=== PATIENT | male | born 1960 | race Caucasian/White ===

== ENCOUNTER 2016-07-11 18:38 | Emergency (ER) | payer OTHER ==
[~2016-07-11 18:38] MED LIST: ALBU1AER9 PO; BISM262S7 PO; CLC100X PO; MELA3TAB12 PO; OXYC5TAB PO
[2016-07-11 18:42] VITALS: TEMP 36.7
[2016-07-11] MEDS ORDERED: CEFTRIAXONE SOD INJ 1 GM ADDVIAL IV STA (18:57)
--- NOTE | 2016-07-11 19:02 | EMERGENCY ROOM VISIT NOTE ---
History Report prepared by Samm: Jay Patel Under the Supervision of: Dr. Juni Shrestha D.O. First contact with patient: 18:50 Chief Complaint: HAND PAIN/INJURY Stated Complaint: L HAND KEVIN History of Present Illness The patient is a 56 year old male who presents to the Emergency Room with complaints of constant pain in the left hand/wrist that began four days prior to arrival. The patient denies any trauma to the arm or hand, but notes that it has been stiff and sore from the forearm down to the hand. He denies any pain in the chest or under the left armpit. He denies any recent significant fingers. 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 A total of 10 systems reviewed and were otherwise negative. Past Medical & Surgical Medical Problems: (1) Appendicitis, acute Surgical Problems: (1) S/P appendectomy Family History Cancer Social History Smoking Status: Current Every Day Smoker Alcohol Use: none Drug Use: none Marital Status: Housing Status: lives with family Occupation Status: employed Current/Historical Medications Scheduled Cephalexin Monohydrate (Keflex), 500 MG PO QID Sulfa/Trimethoprim (Bactrim Ds 800MG/160MG), 1 TAB PO BID Scheduled PRN Oxycodone Immediate Rel Tab (Roxicodone Ir), 1-2 TAB PO Q4H PRN for Severe Pain Allergies Coded Allergies: No Known Allergies (Unverified , 07/11/16) Physical Exam Vital Signs Date Time Temp Pulse Resp B/P Pulse Ox O2 Delivery O2 Flow Rate FiO2 07/11/16 21:27 78 18 132/70 98 07/11/16 20:54 76 18 122/73 98 Room Air 07/11/16 18:42 36.7 80 20 149/90 96 Room Air Physical Exam GENERAL: Patient is awake, alert, and in no acute distress. Patient is resting comfortably and showing no signs of anxiety EYES: The conjunctivae are clear. The pupils are round and reactive. EARS, NOSE, MOUTH AND THROAT: The nose is without any evidence of any deformity. Mucous membranes are moist tongue is midline NECK: The neck is nontender and supple. RESPIRATORY: Normal respiratory effort is noted there is no evidence of wheezing rhonchi or rales CARDIOVASCULAR: Regular rate and rhythm noted there no murmurs rubs or gallops normal S1 normal S2 GASTROINTESTINAL: The abdomen is soft. Bowel sounds are present in all quadrants. Abdomen is nontender BACK: No midline tenderness or or step-off noted range of motion in flexion extension as well as rotation no signs of muscle spasm noted MUSCULOSKELETAL/EXTREMITIES: There is no evidence of gross deformity full range of motion is noted in the hips and shoulders. There is swelling to the dorsum of the left hand. No erythema or lymphangitic streaking was noted. SKIN: There is no obvious evidence of any rash. There are no petechiae, pallor or cyanosis noted. There is edema present on the dorsum of the left hand. There are multiple curvilinear deep lacerations to the left forearm. No active bleeding noted. NEUROLOGIC: Patient is awake alert and oriented x3 Medical Decision & Procedures ER Provider Diagnostic Interpretation: Radiology results as stated below per my review and radiologist interpretation: TWO VIEW CHEST CLINICAL HISTORY: Left arm swelling. FINDINGS: PA and lateral chest radiographs are compared to chest x-ray and chest CT dated 11/01/2014. The cardiomediastinal silhouette is unremarkable. There is mild elevation of the right hemidiaphragm. The lungs and pleural spaces are clear. There is no pneumothorax. The bony thorax appears intact. IMPRESSION: No active disease in the chest. Electronically signed by: Rich Barnett M.D. 07/11/2016 8:58 PM Dictated Date/Time: 07/11/2016 8:58 PM LEFT FOREARM 2 VIEWS CLINICAL HISTORY: Left arm swelling. FINDINGS: AP and lateral views of the left forearm are obtained. No prior studies are available for comparison at the time of dictation. The skeletal structures are well mineralized. No fracture is seen in the left forearm. The wrist and elbow joints are grossly maintained. Mild soft tissue edema is noted. IMPRESSION: Mild soft tissue swelling with no acute bony abnormality seen in the left forearm. Electronically signed by: Rich Barnett M.D. 07/11/2016 9:01 PM Dictated Date/Time: 07/11/2016 9:00 PM LEFT HAND 3 VIEWS CLINICAL HISTORY: Left arm swelling. FINDINGS: 3 views of left hand are obtained. No prior studies are available for comparison at the time of dictation. The skeletal structures are well mineralized. No fracture is seen. The joint spaces of the hand are well-maintained. Mild soft tissue swelling is noted. IMPRESSION: Soft tissue swelling with no acute bony abnormality seen in the left hand. Electronically signed by: Rich Barnett M.D. 07/11/2016 9:00 PM Dictated Date/Time: 07/11/2016 8:59 PM ULTRASOUND LEFT UPPER EXTREMITY VENOUS CLINICAL HISTORY: Left arm swelling. COMPARISON STUDY: No priors. TECHNIQUE: Real-time, grayscale, and color Doppler sonography of the deep veins of the left upper extremity is performed. Compression and augmentation were utilized. FINDINGS: There is no sonographic evidence of deep venous thrombosis identified in the left upper extremity. The left internal jugular, axillary, and brachial veins are patent and normally compressible. Normal venous waveforms and augmentation are seen within the left subclavian vein. The cephalic and basilic veins are clear. The visualized radial and ulnar veins are patent. IMPRESSION: There is no sonographic evidence of deep venous thrombosis identified in the left upper extremity. Electronically signed by: Rich Barnett M.D. 07/11/2016 8:39 PM Dictated Date/Time: 07/11/2016 8:39 PM Laboratory Results 07/11/16 19:10 Red Blood Count 4.92, Mean Corpuscular Volume 87.6, Mean Corpuscular Hemoglobin 30.3, Mean Corpuscular Hemoglobin Concent 34.6, Mean Platelet Volume 9.2, Neutrophils (%) (Auto) 36.7, Lymphocytes (%) (Auto) 41.5, Monocytes (%) (Auto) 7.5, Eosinophils (%) (Auto) 13.2, Basophils (%) (Auto) 0.9, Neutrophils # (Auto ) 2.39, Lymphocytes # (Auto) 2.70, Monocytes # (Auto) 0.49, Eosinophils # (Auto ) 0.86, Basophils # (Auto) 0.06 07/11/16 19:10 Test 07/11/16 19:10 White Blood Count 6.51 K/uL (4.8-10.8) Red Blood Count 4.92 M/uL (4.7-6.1) Hemoglobin 14.9 g/dL (14.0-18.0) Hematocrit 43.1 % (42-52) Mean Corpuscular Volume 87.6 fL (80-100) Mean Corpuscular Hemoglobin 30.3 pg (25-34) Mean Corpuscular Hemoglobin Concent 34.6 g/dl (32-36) Platelet Count 265 K/uL (130-400) Mean Platelet Volume 9.2 fL (7.4-10.4) Neutrophils (%) (Auto) 36.7 % Lymphocytes (%) (Auto) 41.5 % Monocytes (%) (Auto) 7.5 % Eosinophils (%) (Auto) 13.2 % Basophils (%) (Auto) 0.9 % Neutrophils # (Auto) 2.39 K/uL (1.4-6.5) Lymphocytes # (Auto) 2.70 K/uL (1.2-3.4) Monocytes # (Auto) 0.49 K/uL (0.11-0.59) Eosinophils # (Auto) 0.86 K/uL (0-0.5) Basophils # (Auto) 0.06 K/uL (0-0.2) RDW Standard Deviation 42.4 fL (36.4-46.3) RDW Coefficient of Variation 13.2 % (11.5-14.5) Immature Granulocyte % (Auto) 0.2 % Immature Granulocyte # (Auto) 0.01 K/uL (0.00-0.02) Erythrocyte Sedimentation Rate 3 mm/hr (0-14) Prothrombin Time 10.4 SECONDS (9.0-12.0) Prothromb Time International Ratio 1.0 (0.9-1.1) Activated Partial Thromboplast Time 34.5 SECONDS (21.0-31.0) Partial Thromboplastin Ratio 1.3 Anion Gap 7.0 mmol/L (3-11) Estimated GFR () 78.4 Estimated GFR (Non- 67.7 BUN/Creatinine Ratio 20.3 (10-20) Calcium Level 9.1 mg/dl (8.5-10.1) Total Bilirubin 0.3 mg/dl (0.2-1) Direct Bilirubin < 0.1 mg/dl (0-0.2) Aspartate Amino Transf (AST/SGOT) 29 U/L (15-37) Alanine Aminotransferase (ALT/SGPT) 24 U/L (12-78) Alkaline Phosphatase 106 U/L (45-117) C-Reactive Protein 2.42 mg/dl (0-0.29) Total Protein 7.0 gm/dl (6.4-8.2) Albumin 3.8 gm/dl (3.4-5.0) Laboratory results per my review. Medications Administered Medications (Trade) Dose Ordered Sig/Chava Route Start Time Stop Time Status Last Admin Dose Admin Ceftriaxone Sodium (Rocephin Inj) 1 gm NOW STAT IV 07/11/16 18:57 07/11/16 19:00 DC 07/11/16 19:15 1 GM ED Course 1852: The patient was evaluated in room B3B. A complete history and physical examination were performed. 1856: Ordered Rocephin 1 gm IV. 2111: Upon reevaluation, the patient is resting in bed. I discussed the results and treatment plan with him. He verbalized agreement of the treatment plan. The patient was discharged home. Medical Decision Differential diagnosis: Etiologies such as cellulitis, abscess, MRSA infection, DVT, necrotizing fasciitis, dermatitis, drug eruption, as well as others were entertained.. Nursing notes reviewed. The patient is a 56-year-old male who presented to the emergency department for evaluation of left hand and left forearm pain. The patient states she's had these symptoms for about a week. He also noticed a laceration to his left forearm that he sustained with a chainsaw recently. This area appears to be healing well and does not appear to be full-thickness. The patient did not appear to have any bony abnormality and he has no history of trauma. He was treated with IV antibiotics for presumed cellulitis. I discussed the patient's laboratory and radiographic studies with him. He was encouraged to continue to do wound care to the left forearm. He was also encouraged to continue all medications as prescribed. He was also encouraged to follow-up with his family doctor this week for reevaluation but return to the emergency department immediately if symptoms change worsen or the need arises. Impression Primary Impression: Cellulitis Scribe Attestation The scribe's documentation has been prepared under my direction and personally reviewed by me in its entirety. I confirm that the note above accurately reflects all work, treatment, procedures, and medical decision making performed by me. Departure Information Dispostion Home / Self-Care Prescriptions Oxycodone Immediate Rel Tab (ROXICODONE IR) 5 Mg Tab 1-2 TAB PO Q4H Y for Severe Pain, #24 TAB Prov: Juni Shrestha, DO 07/11/16 Cephalexin Monohydrate (KEFLEX) 500 Mg Cap 500 MG PO QID, #40 CAP Prov: Juni Shrestha, DO 07/11/16 Sulfa/Trimethoprim (Bactrim Ds 800MG/160MG) Tab 1 TAB PO BID, #20 TAB Prov: Juni Shrestha, DO 07/11/16 Referrals Renetta Tobar D.O. (PCP) Forms HOME CARE DOCUMENTATION FORM, IMPORTANT VISIT INFORMATION Patient Instructions My [facility] Additional Instructions Continue all medications as prescribed. Put triple antibiotic ointment to the laceration to the left forearm 2-3 times a day. Follow-up with your family this week for reevaluation. Continue using Motrin and Tylenol for mild pain. Return to the emergency department immediately if symptoms change worsen or the need arises. Problem Qualifiers Primary Impression: Cellulitis Site of cellulitis: extremity Site of cellulitis of extremity: upper extremity Laterality: left Qualified Codes: L03.114 - Cellulitis of left upper limb
[2016-07-11 19:25] LABS: BASO % 0.9 %; BASO ABS # 0.06 K/uL (0-0.2); COMPLETE YES; EOS % 13.2 %; HEMATOCRIT 43.1 % (42-52); IG% 0.2 %; LYMPH % 41.5 %; MEAN CELL VOLUME 87.6 fL (80-100); MEAN CORPUSCULAR HEMOGLOBIN 30.3 pg (25-34); MEAN CORPUSCULAR HGB CONC 34.6 g/dl (32-36); MEAN PLATELET VOLUME 9.2 fL (7.4-10.4); MONO % 7.5 %; NEUT % 36.7 %; PLATELET COUNT 265 K/uL (130-400); RED BLOOD COUNT 4.92 M/uL (4.7-6.1); WHITE BLOOD COUNT 6.51 K/uL (4.8-10.8)
[2016-07-11 19:36] LABS: PARTIAL THROMBOPLASTIN RATIO 1.3; PROTHROMBIN TIME (PATIENT) 10.4 SECONDS (9.0-12.0)
[2016-07-11 19:40] LABS: ALT/SGPT 24 U/L (12-78); AST/SGOT 29 U/L (15-37); BLOOD UREA NITROGEN 24 mg/dl (7-18); BUN/CREATININE RATIO 20.3 (10-20); CALCIUM 9.1 mg/dl (8.5-10.1); CARBON DIOXIDE 26 mmol/L (21-32); CHLORIDE 110 mmol/L (98-107); GLUCOSE 119 mg/dl (70-99); SODIUM 143 mmol/L (136-145)
[2016-07-11 19:43] LABS: ALKALINE PHOSPHATASE 106 U/L (45-117); C-REACTIVE PROTEIN 2.42 mg/dl (0-0.29)
--- NOTE | 2016-07-11 20:41 | DIAGNOSTIC IMAGING REPORT ---
ULTRASOUND LEFT UPPER EXTREMITY VENOUS CLINICAL HISTORY: Left arm swelling. COMPARISON STUDY: No priors. TECHNIQUE: Real-time, grayscale, and color Doppler sonography of the deep veins of the left upper extremity is performed. Compression and augmentation were utilized. FINDINGS: There is no sonographic evidence of deep venous thrombosis identified in the left upper extremity. The left internal jugular, axillary, and brachial veins are patent and normally compressible. Normal venous waveforms and augmentation are seen within the left subclavian vein. The cephalic and basilic veins are clear. The visualized radial and ulnar veins are patent. IMPRESSION: There is no sonographic evidence of deep venous thrombosis identified in the left upper extremity. Electronically signed by: Rich Barnett M.D. 07/11/2016 8:39 PM Dictated Date/Time: 07/11/2016 8:39 PM
--- NOTE | 2016-07-11 21:00 | DIAGNOSTIC IMAGING REPORT ---
TWO VIEW CHEST CLINICAL HISTORY: Left arm swelling. FINDINGS: PA and lateral chest radiographs are compared to chest x-ray and chest CT dated 11/01/2014. The cardiomediastinal silhouette is unremarkable. There is mild elevation of the right hemidiaphragm. The lungs and pleural spaces are clear. There is no pneumothorax. The bony thorax appears intact. IMPRESSION: No active disease in the chest. Electronically signed by: Rich Barnett M.D. 07/11/2016 8:58 PM Dictated Date/Time: 07/11/2016 8:58 PM
--- NOTE | 2016-07-11 21:01 | DIAGNOSTIC IMAGING REPORT ---
LEFT HAND 3 VIEWS CLINICAL HISTORY: Left arm swelling. FINDINGS: 3 views of left hand are obtained. No prior studies are available for comparison at the time of dictation. The skeletal structures are well mineralized. No fracture is seen. The joint spaces of the hand are well-maintained. Mild soft tissue swelling is noted. IMPRESSION: Soft tissue swelling with no acute bony abnormality seen in the left hand. Electronically signed by: Rich Barnett M.D. 07/11/2016 9:00 PM Dictated Date/Time: 07/11/2016 8:59 PM
--- NOTE | 2016-07-11 21:02 | DIAGNOSTIC IMAGING REPORT ---
LEFT FOREARM 2 VIEWS CLINICAL HISTORY: Left arm swelling. FINDINGS: AP and lateral views of the left forearm are obtained. No prior studies are available for comparison at the time of dictation. The skeletal structures are well mineralized. No fracture is seen in the left forearm. The wrist and elbow joints are grossly maintained. Mild soft tissue edema is noted. IMPRESSION: Mild soft tissue swelling with no acute bony abnormality seen in the left forearm. Electronically signed by: Rich Barnett M.D. 07/11/2016 9:01 PM Dictated Date/Time: 07/11/2016 9:00 PM
[2016-07-11] MEDS ORDERED: CEPH500C2 PO (21:11)
[2016-07-11] MEDS ORDERED: SULF800T23 PO (21:11)
[2016-07-11] MEDS ORDERED: OXYC1TAB3 PO (21:11)
[2016-07-11 21:27] VITALS: BP 132/70; PULSE 78; O2SAT 98
[2016-09-18] MEDS ORDERED: MULT-506 PO (13:38)
== END 2016-07-11 21:28 | disposition home or self-care (01) ==
LOC: C.EDB 18:41
DX: L03.114 Cellulitis of left upper limb (principal); Z80.9 Family history of malignant neoplasm, unspecified; F17.210 Nicotine dependence, cigarettes, uncomplicated

== ENCOUNTER 2016-09-17 12:49 | Emergency (ER) | payer OTHER ==
[~2016-09-17] VITALS: Ht 175.3 cm; Wt 89.3 kg
[~2016-09-17 12:49] MED LIST changes: -ALBU1AER9 PO; -BISM262S7 PO; +CEPH500C2 PO; -CLC100X PO; -MELA3TAB12 PO; +OXYC1TAB3 PO; -OXYC5TAB PO; +SULF800T23 PO
[2016-09-17 13:01] VITALS: TEMP 37.4; Ht 175.3 cm; Wt 89.3 kg
[2016-09-17] MEDS ORDERED: KETOROLAC TROMETHAMINE 30 MG/ML VIAL IV STA (13:43)
[2016-09-17] MEDS ORDERED: ONDANSETRON INJ 2 MG/ML 2 ML VIAL IV STA (13:43)
[2016-09-17] MEDS ORDERED: SODIUM CHLORIDE 0.9% 1000ML 1,000 ML IV STA (13:43)
[2016-09-17] MEDS ORDERED: MoRPHine SULFATE 4 MG/ML 1 ML CARP\\VIAL IV STA (13:43)
[2016-09-17] MEDS ORDERED: SULFAMETHOXAZOLE/TRIMETHOPRIM DS 800/160MG TAB PO STA (13:43)
[2016-09-17] MEDS ORDERED: CEFTRIAXONE SOD INJ 1 GM ADDVIAL IV STA (13:43)
[2016-09-17] MEDS ORDERED: MoRPHine SULFATE 4 MG/ML 1 ML CARP\\VIAL IV PRN (13:45)
[2016-09-17 14:28] LABS: BASO % 0.3 %; BASO ABS # 0.03 K/uL (0-0.2); COMPLETE YES; EOS % 3.1 %; HEMATOCRIT 41.4 % (42-52); IG% 0.2 %; LYMPH % 14.7 %; LYMPH ABS # 1.49 K/uL (1.2-3.4); MEAN CELL VOLUME 86.3 fL (80-100); MEAN CORPUSCULAR HEMOGLOBIN 30.2 pg (25-34); NEUT % 71.7 %; PLATELET COUNT 225 K/uL (130-400); WHITE BLOOD COUNT 10.14 K/uL (4.8-10.8)
[2016-09-17 14:44] LABS: BUN/CREATININE RATIO 11.4 (10-20); C-REACTIVE PROTEIN 8.68 mg/dl (0-0.29); CALCIUM 8.9 mg/dl (8.5-10.1); CREATININE 1.2 mg/dl (0.60-1.40); POTASSIUM 3.8 mmol/L (3.5-5.1)
--- NOTE | 2016-09-17 15:15 | DIAGNOSTIC IMAGING REPORT ---
SOFT TIS HEAD/NECK-THYROID HISTORY: Cellulitis R supraclavicular/neck cellulitis - r/o abscess COMPARISON: None. Findings: Mild soft tissue edema of the subcutaneous tissues of the right supraclavicular region. Linear area of a trace amount of fluid versus edematous change measures 2 x 0.3 cm. A major abscess or collection, however is not appreciated. IMPRESSION: Localized area of soft tissue edema of the right supraclavicular region. No major drainable abscess or collection The above report was generated using voice recognition software. It may contain grammatical, syntax or spelling errors. Electronically signed by: Johnnie Ely M.D. 09/17/2016 3:14 PM Dictated Date/Time: 09/17/2016 3:13 PM
[2016-09-17 15:59] VITALS: BP 111/60; PULSE 60; O2SAT 96
[2016-09-17] MEDS ORDERED: OXYC1TAB3 PO (16:05)
[2016-09-17] MEDS ORDERED: SULF800T23 PO (16:05)
[2016-09-17] MEDS ORDERED: ONDA4TAB10 SL (16:05)
--- NOTE | 2016-09-17 20:49 | EMERGENCY ROOM VISIT NOTE ---
History First contact with patient: 13:35 Chief Complaint: INFECTION Stated Complaint: INFECTION IN NECK AREA Nursing Triage Summary: pt states he had poison joão earlier this week and has been putting calamine lotion to bilateral arms and legs. pt states [facility] patient has had increased pain and redness to right collarbone. skin to right collarbone reddened, irritated and inflamed. no drainage per patient History of Present Illness The patient is a 56 year old male who presents to the Emergency Room with complaints of right-sided neck swelling, pain and redness. The patient reports that he noticed swelling 2 days ago, and has had significant worsening discomfort. He reports having a fever 101F last night as well. He denies any chest pain, shortness of breath or worsening pain with deep breathing. He denies any known trauma to the neck. He thought that he may have come into contact with poison joão earlier in the week. He was seen at his family doctor' s office and provided a prescription for Keflex. He presents here because of the increasing pain and fever. Review of Systems HEENT: Denies dizziness, visual problems, hearing loss, tinnitus. Denies difficulty swallowing or oral lesions. PULMONARY: Denies cough, shortness of breath, sputum production or hemoptysis. CARDIOVASCULAR: Denies chest pain, palpitations, dyspnea on exertion, orthopnea or peripheral edema. GASTROINTESTINAL: Denies diarrhea, constipation, nausea, vomiting, or abdominal pain. GENITOURINARY: Denies dysuria, frequency, urgency or nocturia. NEUROLOGIC: Denies history of epilepsy, CVA, TIA or chronic headaches. MUSCULOSKELETAL: Denies history of joint tenderness/swelling. SKIN: Denies rashes or lesions. PSYCHIATRIC: Denies history of depression or mental illness. ENDOCRINE: Denies history of diabetes or thyroid disorders. Past Medical/Surgical History Medical Problems: (1) Appendicitis, acute Surgical Problems: (1) S/P appendectomy Family History Cancer Social History Smoking Status: Current Some Day Smoker Alcohol Use: none Drug Use: none Marital Status: Housing Status: lives with family Occupation Status: employed Current/Historical Medications Scheduled Cephalexin Monohydrate (Keflex), 500 MG PO QID Multivitamin (Multivitamin), 1 TAB PO DAILY Ondasetron Odt (Zofran Odt), 4 MG SL Q6H Sulfa/Trimethoprim (Bactrim Ds 800MG/160MG), 1 TAB PO BID Scheduled PRN Oxycodone Ir (Roxicodone Ir), 1-2 TAB PO Q4H PRN for Pain Physical Exam Vital Signs Date Time Temp Pulse Resp B/P (MAP) Pulse Ox O2 Delivery O2 Flow Rate FiO2 09/17/16 15:59 60 16 111/60 96 Room Air 09/17/16 14:41 64 16 120/70 98 Room Air 09/17/16 13:01 37.4 83 18 121/78 94 Room Air Pain Rating (0-10): 0 Physical Exam CONSTITUTIONAL: Healthy and well nourished. Alert and oriented X 3 with positive affect. She appears in moderately severe discomfort. HEENT: Normocephalic, atraumatic. Pupils equal, round and reactive. Ears and nares are clear. NECK: The patient has notable soft tissue edema, erythema and a few scabs on the right lateral neck region. The entire area is indurated without evidence for fluctuance. The erythema extends into the supraclavicular space as well. RESPIRATORY: Clear to auscultation bilaterally with no wheezing, crackles, rhonchi or stridor. CARDIOVASCULAR: Regular rate and rhythm with no murmurs, rubs or gallops. GASTROINTESTINAL: Bowel sounds present in all quadrants. Soft and nontender to palpation. MUSCULOSKELETAL: Full range of motion of all joints without discomfort. The patient has no worsening pain with range of motion of the right shoulder, and has no tenderness to palpation through the entire shoulder and clavicle region. INTEGUMENTARY: No rash or other significant dermatologic conditions noted. Otherwise see description in the previous Neck section. NEUROLOGIC: Cranial nerves II-XII grossly intact. No focal neurologic deficits noted. Left upper extremity is sensory intact. Medical Decision & Procedures ER Provider Diagnostic Interpretation: Ultrasound of the neck soft tissue does not show any evidence for fluid collection. Radiologist report is as follows: SOFT TIS HEAD/NECK-THYROID HISTORY: Cellulitis R supraclavicular/neck cellulitis - r/o abscess COMPARISON: None. Findings: Mild soft tissue edema of the subcutaneous tissues of the right supraclavicular region. Linear area of a trace amount of fluid versus edematous change measures 2 x 0.3 cm. A major abscess or collection, however is not appreciated. IMPRESSION: Localized area of soft tissue edema of the right supraclavicular region. No major drainable abscess or collection Laboratory Results 09/17/16 14:07 Red Blood Count 4.80, Mean Corpuscular Volume 86.3, Mean Corpuscular Hemoglobin 30.2, Mean Corpuscular Hemoglobin Concent 35.0, Mean Platelet Volume 9.0, Neutrophils (%) (Auto) 71.7, Lymphocytes (%) (Auto) 14.7, Monocytes (%) (Auto) 10.0, Eosinophils (%) (Auto) 3.1, Basophils (%) (Auto) 0.3, Neutrophils # (Auto ) 7.28, Lymphocytes # (Auto) 1.49, Monocytes # (Auto) 1.01, Eosinophils # (Auto ) 0.31, Basophils # (Auto) 0.03 09/17/16 14:07 Test 09/17/16 14:07 09/17/16 14:12 White Blood Count 10.14 K/uL (4.8-10.8) Red Blood Count 4.80 M/uL (4.7-6.1) Hemoglobin 14.5 g/dL (14.0-18.0) Hematocrit 41.4 % (42-52) Mean Corpuscular Volume 86.3 fL (80-100) Mean Corpuscular Hemoglobin 30.2 pg (25-34) Mean Corpuscular Hemoglobin Concent 35.0 g/dl (32-36) Platelet Count 225 K/uL (130-400) Mean Platelet Volume 9.0 fL (7.4-10.4) Neutrophils (%) (Auto) 71.7 % Lymphocytes (%) (Auto) 14.7 % Monocytes (%) (Auto) 10.0 % Eosinophils (%) (Auto) 3.1 % Basophils (%) (Auto) 0.3 % Neutrophils # (Auto) 7.28 K/uL (1.4-6.5) Lymphocytes # (Auto) 1.49 K/uL (1.2-3.4) Monocytes # (Auto) 1.01 K/uL (0.11-0.59) Eosinophils # (Auto) 0.31 K/uL (0-0.5) Basophils # (Auto) 0.03 K/uL (0-0.2) RDW Standard Deviation 41.2 fL (36.4-46.3) RDW Coefficient of Variation 13.0 % (11.5-14.5) Immature Granulocyte % (Auto) 0.2 % Immature Granulocyte # (Auto) 0.02 K/uL (0.00-0.02) Erythrocyte Sedimentation Rate 2 mm/hr (0-14) Anion Gap 3.0 mmol/L (3-11) Est Creatinine Clear Calc Drug Dose 76.9 ml/min Estimated GFR () 78.4 Estimated GFR (Non- 67.7 BUN/Creatinine Ratio 11.4 (10-20) Calcium Level 8.9 mg/dl (8.5-10.1) C-Reactive Protein 8.68 mg/dl (0-0.29) Bedside Lactic Acid Venous 1.09 mmol/L (0.90-1.70) The above labs were reviewed. C-reactive protein is elevated, however sedimentation rate is normal. Lactic acid is normal. CBC is otherwise grossly normal. Medications Administered Medications (Trade) Dose Ordered Sig/Chava Route Start Time Stop Time Status Last Admin Dose Admin Sodium Chloride 1,000 ml @ 999 mls/hr Q1H1M STAT IV 09/17/16 13:43 09/17/16 14:43 DC 09/17/16 14:09 999 MLS/HR Morphine Sulfate (MoRPHine SULFATE INJ) 4 mg NOW STAT IV 09/17/16 13:43 09/17/16 13:49 DC 09/17/16 14:12 4 MG Ketorolac Tromethamine (Toradol Inj) 30 mg NOW STAT IV 09/17/16 13:43 09/17/16 13:48 DC 09/17/16 14:11 30 MG Ondansetron HCl (Zofran Inj) 4 mg NOW STAT IV 09/17/16 13:43 09/17/16 13:48 DC 09/17/16 14:10 4 MG Ceftriaxone Sodium (Rocephin Inj) 1 gm NOW STAT IV 09/17/16 13:43 09/17/16 13:48 DC 09/17/16 14:13 1 GM Trimethoprim/ Sulfamethoxazole (Septra Ds 800/ 160MG Tab) 1 tab NOW STAT PO 09/17/16 13:43 09/17/16 13:48 DC 09/17/16 14:09 1 TAB ED Course Patient history and physical exam were performed. Nurse's notes were reviewed. Vital signs were reviewed and normal. The patient is currently normotensive and not tachycardic. The patient does appear in moderate discomfort from pain. Because of concern for cellulitis versus abscess formation, I did suggest additional workup, including an ultrasound study. The patient was in agreement. IV access was established, and labs were drawn. The cultures 2 were collected. The patient was administered IV morphine, Toradol and Zofran. He was also administered Rocephin 1 g IV infusion, and Bactrim DS. Labs were reviewed showed no leukocytosis. CRP is elevated with a normal sedimentation rate. Ultrasound does not show any evidence for fluid collection. The patient was provided a prescription for Bactrim DS and OxyIR 5 mg. He was instructed to continue with the Keflex antibiotics as previous prescribed. The patient's IV access was secured, and the patient will return tomorrow afternoon for a 24-hour follow-up. The patient was also seen by ROCKY Vargas who will see the patient tomorrow. Margins of the cellulitis were demarcated. Patient was instructed to return sooner for any significant worsening redness, swelling, pain, difficulty swallowing or other concerning symptoms. The patient was happy with plan of care, voiced understanding of all discharge instructions, and rated his pain a 3 out of 10 at the conclusion of my exam. Medical Decision Medication Reconcilliation Current Medication List: was personally reviewed by me Blood Pressure Screening Patient's blood pressure: Normal blood pressure Impression Primary Impression: Cellulitis, neck Departure Information Prescriptions Ondasetron Odt (ZOFRAN ODT) 4 Mg Tab 4 MG SL Q6H for Nausea, #10 TAB Prov: Elver Michael PA 09/17/16 Oxycodone Ir (Roxicodone Ir) 5 Mg Tab 1-2 TAB PO Q4H Y for Pain, #15 TAB For Initial Treatment Prov: Elver Michael PA 09/17/16 Sulfa/Trimethoprim (Bactrim Ds 800MG/160MG) Tab 1 TAB PO BID for 10 Days, #20 TAB Prov: Elver Michael PA 09/17/16 Referrals Renetta Tobar D.O. (PCP) Patient Instructions My [facility]
[2016-09-18] MEDS ORDERED: MULT-506 PO (13:38)
[2016-09-18] MEDS ORDERED: CEPH500C2 PO (15:45)
== END 2016-09-17 16:12 | disposition home or self-care (01) ==
LOC: C.EDB 12:50 → C.EDD 16:12
DX: L03.221 Cellulitis of neck (principal); F17.200 Nicotine dependence, unspecified, uncomplicated; Z90.89 Acquired absence of other organs

== ENCOUNTER 2016-09-18 15:27 | Inpatient (IN) | payer OTHER ==
[~2016-09-18] VITALS: Ht 177.8 cm; Wt 90.7 kg
[~2016-09-18 15:27] MED LIST changes: +MULT-506 PO; +ONDA4TAB10 SL
[2016-09-18] MEDS ORDERED: CEPH500C2 PO (15:45)
[2016-09-18] MEDS ORDERED: SODIUM CHLORIDE 0.9% 1000ML 1,000 ML IV STA (16:08)
--- NOTE | 2016-09-18 16:31 | EMERGENCY ROOM VISIT NOTE ---
History First contact with patient: 15:47 Chief Complaint: WOUND RECHECK Stated Complaint: RETURN FOR TREATMENT FOR INFECTION History of Present Illness The patient is a 56 year old male who presents to the Emergency Room with complaints of right neck cellulitis that started 3 days ago. Patient was seen in this ER yesterday, treated with IV Rocephin and sent home on Keflex and Bactrim. He was instructed to return to the ER today for recheck of his cellulitis. He states the pain has gotten worse and the redness has spread since yesterday. He also reports chills and sweats, stating he soaked through his bed sheets this morning. He has had 5 doses of Keflex and 2 doses of Bactrim since discharge yesterday. Patient states that he has been told he is type II diabetic, but does not take any medications for this and is supposed to "watch his diet.". Patient also admits to IV injection of cocaine, most recently 1 month ago, but denies injecting at the area of his cellulitis. Patient denies any facial or tongue swelling, difficulty swallowing, difficulty breathing, chest pain, shortness of breath, abdominal pain, vomiting, diarrhea, urinary symptoms. Review of Systems A complete 10 point review of systems was reviewed with the patient with pertinent positives and negatives as per history of present illness. All else were negative. Past Medical/Surgical History Medical Problems: (1) Appendicitis, acute Surgical Problems: (1) S/P appendectomy Family History Cancer Social History Smoking Status: Current Every Day Smoker Alcohol Use: none Drug Use: none Marital Status: Housing Status: lives with family Occupation Status: employed Current/Historical Medications Scheduled Cephalexin Monohydrate (Keflex), 500 MG PO QID Multivitamin (Multivitamin), 1 TAB PO DAILY Ondasetron Odt (Zofran Odt), 4 MG SL Q6H Sulfa/Trimethoprim (Bactrim Ds 800MG/160MG), 1 TAB PO BID Scheduled PRN Oxycodone Ir (Roxicodone Ir), 1-2 TAB PO Q4H PRN for Pain Physical Exam Vital Signs Date Time Temp Pulse Resp B/P (MAP) Pulse Ox O2 Delivery O2 Flow Rate FiO2 09/18/16 17:50 55 118/76 98 Room Air 09/18/16 15:29 36.7 60 20 112/68 99 Room Air Physical Exam CONSTITUTIONAL: No acute distress. Well appearing and well nourished. Alert and oriented X 4 with normal affect. HEENT: Normocephalic, atraumatic. Pupils equal, round and reactive to light, EOMI. TMs normal. Pharynx normal. No woody edema in the fourth of mouth. No difficulty swallowing. Moist mucous membranes. NECK: There is moderate erythema, induration of the right supraclavicular area extending of the neck and around the shoulder, extending 1-2 inches the onset skin markings from yesterday. Exquisitely tender to palpation. No midline tenderness of the neck, supple, full active range of motion without discomfort. RESPIRATORY: Clear to auscultation bilaterally with no wheezing, crackles, rhonchi or stridor. Equal expansion bilaterally. CARDIOVASCULAR: Regular rate and rhythm with no murmurs, rubs or gallops. Normal peripheral perfusion. No edema. GASTROINTESTINAL: Soft, nontender, nondistended. Bowel sounds present in all quadrants. MUSCULOSKELETAL: Full range of motion of all joints without discomfort. INTEGUMENTARY: No other rash or other significant dermatologic conditions noted. NEUROLOGIC: Cranial nerves II-XII grossly intact. No focal neurologic deficits noted. Medical Decision & Procedures ER Provider Diagnostic Interpretation: SOFT TISSUE NECK WITH CLINICAL HISTORY: Right neck/clavicular cellulitis. COMPARISON STUDY: Neck ultrasound September 17, 2016. TECHNIQUE: Axial images of the neck were obtained following intravenous injection of 116 cc Optiray 320 IV. FINDINGS: Visualized portions of the intracranial contents are unremarkable. The orbits are unremarkable. There is minimal mucosal thickening of the sinuses. The parotid and submandibular glands are normal. The epiglottis is normal. No mucosal lesion is identified although these may be occult by CT. There is moderate right supraclavicular subcutaneous infiltration as well as fluid overlying the musculature. There is a small amount of subcutaneous fluid which corresponds to the abnormality shown on ultrasound of September 17, 2016. There is no rim-enhancing fluid collection to suggest a drainable abscess. The chest will be reported separately. Skeletal structures are unremarkable. IMPRESSION: Moderate right supraclavicular subcutaneous infiltration and fluid overlying the adjacent musculature. The findings represent cellulitis. No rim-enhancing fluid collection. Small amount of subcutaneous fluid as shown on prior ultrasound. This suggests edema or phlegmon. No convincing evidence for abscess. CT OF THE CHEST WITH IV CONTRAST CLINICAL HISTORY: right neck/clavicular cellulitis EVALUATE FOR INTRATHORACIC EXTENSION COMPARISON STUDY: CT angiography the chest dated 11/01/2014 , CT scan of the abdomen pelvis dated 09/20/2015 TECHNIQUE: Following the IV administration of 116 mL of Optiray-320, CT of the thorax was performed from the thoracic inlet to the lung bases. Images are reviewed in the axial, sagittal, and coronal planes. IV contrast was administered without complication. A dose lowering technique was utilized adhering to the principles of ALARA. CT DOSE: FINDINGS: Thyroid: Imaged portions of the thyroid gland are normal in appearance. Thoracic aorta: The thoracic aorta is normal in course and caliber, noting standard 3-vessel arch anatomy. No aneurysm or dissection is seen. Pulmonary vasculature: The pulmonary trunk is normal in caliber. There are no central filling defects identified to suggest pulmonary embolus. Note that this examination was not protocoled for the evaluation of pulmonary emboli. HEART: The heart is normal in size and configuration, without pericardial effusion. Lungs and pleural spaces: There is bibasal atelectasis. There is no lobar consolidation. There is a 5 mm solid right upper lobe pulmonary nodule as visualized in image #133/[id number]. This appears similar to the prior August 2014 study. There is a 5 mm right perivascular solid upper lobe nodule, slightly smaller than the prior study. There is a 3 mm solid right upper lobe pulmonary nodule as visualized in image #121/336. This remain stable. There is a 5 mm perivascular left upper lobe point nodule as visualized in image #172/[id number] which remain stable. Mediastinum: Mediastinal lymph nodes are the upper limits of normal in size Mindy: Hilar lymph nodes are borderline enlarged, but unchanged from August 2014 Axilla: Axillary lymph nodes remain mildly prominent similar to the prior 2014 study Upper abdomen: There is a partially visualized 18 mm hypervascular nodule within the inferior aspect of the right lobe of the liver. This is not visualized the prior CT scan dated 09/18/2015. An MRI the liver is recommended in follow-up. There is minimal soft tissue edema base of the right neck. A separate CT scan of the neck was obtained. Skeletal structures: There are no lytic or blastic osseous lesions. IMPRESSION: 1. Multiple subcentimeter solid pulmonary nodules, essentially unchanged from August 2014. 2. Mildly prominent mediastinal hilar and axillary lymph nodes, also similar to the prior 2014 study 3. No evidence of focal pulmonary consolidation 4. Partially visualized 18 mm hypervascular nodule within the inferior aspect of the right lobe of the liver. This was not visualized the prior abdominal CT scan dated 09/18/2015. An MRI the liver is recommended in follow-up. Laboratory Results 09/18/16 16:25 Red Blood Count 4.53, Mean Corpuscular Volume 86.8, Mean Corpuscular Hemoglobin 30.5, Mean Corpuscular Hemoglobin Concent 35.1, Mean Platelet Volume 8.9, Neutrophils (%) (Auto) 65.0, Lymphocytes (%) (Auto) 22.1, Monocytes (%) (Auto) 6.8, Eosinophils (%) (Auto) 5.7, Basophils (%) (Auto) 0.2, Neutrophils # (Auto) 5.98, Lymphocytes # (Auto) 2.04, Monocytes # (Auto) 0.63, Eosinophils # (Auto) 0.53, Basophils # (Auto) 0.02 09/18/16 16:25 Test 09/18/16 16:25 White Blood Count 9.22 K/uL (4.8-10.8) Red Blood Count 4.53 M/uL (4.7-6.1) Hemoglobin 13.8 g/dL (14.0-18.0) Hematocrit 39.3 % (42-52) Mean Corpuscular Volume 86.8 fL (80-100) Mean Corpuscular Hemoglobin 30.5 pg (25-34) Mean Corpuscular Hemoglobin Concent 35.1 g/dl (32-36) Platelet Count 220 K/uL (130-400) Mean Platelet Volume 8.9 fL (7.4-10.4) Neutrophils (%) (Auto) 65.0 % Lymphocytes (%) (Auto) 22.1 % Monocytes (%) (Auto) 6.8 % Eosinophils (%) (Auto) 5.7 % Basophils (%) (Auto) 0.2 % Neutrophils # (Auto) 5.98 K/uL (1.4-6.5) Lymphocytes # (Auto) 2.04 K/uL (1.2-3.4) Monocytes # (Auto) 0.63 K/uL (0.11-0.59) Eosinophils # (Auto) 0.53 K/uL (0-0.5) Basophils # (Auto) 0.02 K/uL (0-0.2) RDW Standard Deviation 42.3 fL (36.4-46.3) RDW Coefficient of Variation 13.2 % (11.5-14.5) Immature Granulocyte % (Auto) 0.2 % Immature Granulocyte # (Auto) 0.02 K/uL (0.00-0.02) Erythrocyte Sedimentation Rate 2 mm/hr (0-14) Prothrombin Time 11.0 SECONDS (9.0-12.0) Prothromb Time International Ratio 1.0 (0.9-1.1) Activated Partial Thromboplast Time 38.2 SECONDS (21.0-31.0) Partial Thromboplastin Ratio 1.5 Anion Gap -1.0 mmol/L (3-11) Est Creatinine Clear Calc Drug Dose 78.8 ml/min Estimated GFR () 78.4 Estimated GFR (Non- 67.7 BUN/Creatinine Ratio 13.2 (10-20) Lactic Acid Level 1.4 mmol/L (0.4-2.0) Calcium Level 9.1 mg/dl (8.5-10.1) Magnesium Level 2.3 mg/dl (1.8-2.4) Total Bilirubin 0.4 mg/dl (0.2-1) Aspartate Amino Transf (AST/SGOT) 27 U/L (15-37) Alanine Aminotransferase (ALT/SGPT) 34 U/L (12-78) Alkaline Phosphatase 70 U/L (45-117) C-Reactive Protein 7.79 mg/dl (0-0.29) Total Protein 6.6 gm/dl (6.4-8.2) Albumin 3.3 gm/dl (3.4-5.0) Globulin 3.3 gm/dl (2.5-4.0) Albumin/Globulin Ratio 1.0 (0.9-2) Thyroid Stimulating Hormone (TSH) 1.000 uIu/ml (0.300-4.500) Medications Administered Medications (Trade) Dose Ordered Sig/Chava Route Start Time Stop Time Status Last Admin Dose Admin Sodium Chloride 1,000 ml @ 999 mls/hr Q1H1M STAT IV 09/18/16 16:08 09/18/16 17:08 DC 09/18/16 16:48 999 MLS/HR Ceftriaxone Sodium (Rocephin Inj) 1 gm NOW STAT IV 09/18/16 17:14 09/18/16 17:15 DC 09/18/16 17:44 1 GM Morphine Sulfate (MoRPHine SULFATE INJ) 6 mg NOW STAT IV 09/18/16 17:14 09/18/16 17:15 DC 09/18/16 17:41 6 MG Medical Decision CC: Patient presenting with complaint of right neck/shoulder cellulitis Interpretation of Labs: No leukocytosis, mild anemia, no significant electrolyte abnormalities, normal renal function. Elevated CRP, normal ESR. Normal lactic acid. Differential Diagnosis: Includes, but not limited to cellulitis, abscess, deep space infection, failed outpatient treatment, among others. Medication Reconciliation: I attest that I have personally reviewed the patient' s current medication list. Vital signs review: I reviewed the patient's vital signs and interpret them as follows: T: Afebrile; BP: Normotensive; HR: Within normal limits; RR: Within normal limits; Pulse Ox: Within normal limits on room air. Blood pressure screening: The patient was found to have normal blood pressure on screening and does not require follow-up for repeat blood pressure check. Summary: Patient was evaluated at bedside, history of physical exam performed. Patient is alert and in no acute distress. He does note that his area of cellulitis has worsened since yesterday, and he continues to have chills and night sweats. Or spreading erythema and significant tenderness noted to the right supraclavicular and neck area, spreading outside skin markings from yesterday. Orders were placed at bedside for labs, repeat blood cultures, IV fluids and antibiotics including vancomycin, CT of the neck and chest with IV contrast to further evaluate for cellulitis and deep space abscess in the neck or chest. Patient discussed with Dr. Humphries, who agrees with my assessment and plan. CT shows moderate cellulitis without any identified abscess. Given location of cellulitis, worsening clinical picture, and added history of IV drug abuse, recommending admission for this patient. I spoke with the Hospitalist, who agrees with plan for admission. Patient updated on all results and plan for admission, he verbalized understanding and is agreeable to this plan. Patient stable at time of admission. Impression Primary Impression: Cellulitis, neck Departure Information Dispostion Admitted as an inpatient Referrals Tobar, Renetta M., D.O. (PCP) Patient Instructions [facility]
[2016-09-18 16:47] LABS: BASO % 0.2 %; BASO ABS # 0.02 K/uL (0-0.2); COMPLETE YES; EOS % 5.7 %; HEMATOCRIT 39.3 % (42-52); IG% 0.2 %; LYMPH % 22.1 %; LYMPH ABS # 2.04 K/uL (1.2-3.4); MEAN CELL VOLUME 86.8 fL (80-100); MEAN CORPUSCULAR HEMOGLOBIN 30.5 pg (25-34); MEAN CORPUSCULAR HGB CONC 35.1 g/dl (32-36); MEAN PLATELET VOLUME 8.9 fL (7.4-10.4); MONO % 6.8 %; PLATELET COUNT 220 K/uL (130-400); RED BLOOD COUNT 4.53 M/uL (4.7-6.1); WHITE BLOOD COUNT 9.22 K/uL (4.8-10.8)
[2016-09-18 16:56] LABS: PARTIAL THROMBOPLASTIN RATIO 1.5
[2016-09-18] MEDS ORDERED: MoRPHine SULFATE 10 MG/ML CARP/VIAL IV STA (17:14)
[2016-09-18] MEDS ORDERED: CEFTRIAXONE SOD INJ 1 GM ADDVIAL IV STA (17:14)
[2016-09-18 17:25] LABS: BUN/CREATININE RATIO 13.2 (10-20); C-REACTIVE PROTEIN 7.79 mg/dl (0-0.29); CALCIUM 9.1 mg/dl (8.5-10.1); CREATININE 1.2 mg/dl (0.60-1.40)
[2016-09-18 17:26] LABS: POTASSIUM 4.5 mmol/L (3.5-5.1)
[2016-09-18] MEDS ORDERED: OPTIRAY 320 IV PRN (17:45)
--- NOTE | 2016-09-18 18:31 | DIAGNOSTIC IMAGING REPORT ---
CT OF THE CHEST WITH IV CONTRAST CLINICAL HISTORY: right neck/clavicular cellulitis EVALUATE FOR INTRATHORACIC EXTENSION COMPARISON STUDY: CT angiography the chest dated 11/01/2014 , CT scan of the abdomen pelvis dated 09/20/2015 TECHNIQUE: Following the IV administration of 116 mL of Optiray-320, CT of the thorax was performed from the thoracic inlet to the lung bases. Images are reviewed in the axial, sagittal, and coronal planes. IV contrast was administered without complication. A dose lowering technique was utilized adhering to the principles of ALARA. CT DOSE: FINDINGS: Thyroid: Imaged portions of the thyroid gland are normal in appearance. Thoracic aorta: The thoracic aorta is normal in course and caliber, noting standard 3-vessel arch anatomy. No aneurysm or dissection is seen. Pulmonary vasculature: The pulmonary trunk is normal in caliber. There are no central filling defects identified to suggest pulmonary embolus. Note that this examination was not protocoled for the evaluation of pulmonary emboli. HEART: The heart is normal in size and configuration, without pericardial effusion. Lungs and pleural spaces: There is bibasal atelectasis. There is no lobar consolidation. There is a 5 mm solid right upper lobe pulmonary nodule as visualized in image #[id number]. This appears similar to the prior August 2014 study. There is a 5 mm right perivascular solid upper lobe nodule, slightly smaller than the prior study. There is a 3 mm solid right upper lobe pulmonary nodule as visualized in image #121/336. This remain stable. There is a 5 mm perivascular left upper lobe point nodule as visualized in image #172/[id number] which remain stable. Mediastinum: Mediastinal lymph nodes are the upper limits of normal in size Mindy: Hilar lymph nodes are borderline enlarged, but unchanged from August 2014 Axilla: Axillary lymph nodes remain mildly prominent similar to the prior 2014 study Upper abdomen: There is a partially visualized 18 mm hypervascular nodule within the inferior aspect of the right lobe of the liver. This is not visualized the prior CT scan dated 09/18/2015. An MRI the liver is recommended in follow-up. There is minimal soft tissue edema base of the right neck. A separate CT scan of the neck was obtained. Skeletal structures: There are no lytic or blastic osseous lesions. IMPRESSION: 1. Multiple subcentimeter solid pulmonary nodules, essentially unchanged from August 2014. 2. Mildly prominent mediastinal hilar and axillary lymph nodes, also similar to the prior 2014 study 3. No evidence of focal pulmonary consolidation 4. Partially visualized 18 mm hypervascular nodule within the inferior aspect of the right lobe of the liver. This was not visualized the prior abdominal CT scan dated 09/18/2015. An MRI the liver is recommended in follow-up. Electronically signed by: Jayden Portillo M.D. 09/18/2016 6:30 PM Dictated Date/Time: 09/18/2016 6:17 PM
--- NOTE | 2016-09-18 18:38 | DIAGNOSTIC IMAGING REPORT ---
SOFT TISSUE NECK WITH CLINICAL HISTORY: Right neck/clavicular cellulitis. COMPARISON STUDY: Neck ultrasound September 17, 2016. TECHNIQUE: Axial images of the neck were obtained following intravenous injection of 116 cc Optiray 320 IV. FINDINGS: Visualized portions of the intracranial contents are unremarkable. The orbits are unremarkable. There is minimal mucosal thickening of the sinuses. The parotid and submandibular glands are normal. The epiglottis is normal. No mucosal lesion is identified although these may be occult by CT. There is moderate right supraclavicular subcutaneous infiltration as well as fluid overlying the musculature. There is a small amount of subcutaneous fluid which corresponds to the abnormality shown on ultrasound of September 17, 2016. There is no rim-enhancing fluid collection to suggest a drainable abscess. The chest will be reported separately. Skeletal structures are unremarkable. IMPRESSION: Moderate right supraclavicular subcutaneous infiltration and fluid overlying the adjacent musculature. The findings represent cellulitis. No rim-enhancing fluid collection. Small amount of subcutaneous fluid as shown on prior ultrasound. This suggests edema or phlegmon. No convincing evidence for abscess. Electronically signed by: Dallas Peraza M.D. 09/18/2016 6:37 PM Dictated Date/Time: 09/18/2016 6:23 PM
[2016-09-18] MEDS ORDERED: VANCOMYCIN IV STA (18:51)
[2016-09-18] MEDS ORDERED: SODIUM CHLORIDE 0.9% IV STA (18:51)
[2016-09-18] MEDS ORDERED: VANCOMYCIN INJ 2,250 MG in SODIUM CHLORIDE 0.9% 500ML 500 ML IV STA (19:04)
[2016-09-18] MEDS ORDERED: OXYCODONE HCL IR 5 MG TAB (IMMEDIATE RELEASE) PO PRN (19:45)
[2016-09-18] MEDS ORDERED: ONDANSETRON INJ 2 MG/ML 2 ML VIAL IV PRN (19:45)
[2016-09-18] MEDS ORDERED: DOXYCYCLINE IV 100 MG in DEXTROSE 5% 100ML 100 ML IV ONE (19:45)
[2016-09-18] MEDS ORDERED: IBUPROFEN 200 MG TAB PO PRN (19:45)
[2016-09-18] MEDS ORDERED: KETOROLAC TROMETHAMINE 30 MG/ML VIAL IV PRN (19:45)
[2016-09-18] MEDS ORDERED: ACETAMINOPHEN 325 MG TAB PO PRN (19:45)
[2016-09-18] MEDS ORDERED: GLUCOSE 40% GEL 15 GM TUBE PO PRN (20:00)
[2016-09-18] MEDS ORDERED: GLUCOSE 10 TABS/TUBE PO PRN (20:00)
[2016-09-18] MEDS ORDERED: ALBUT/IPRATROP 3MG/0.5MG NEB 3 ML VIAL INH PRN (20:00)
[2016-09-18] MEDS ORDERED: DEXTROSE 50% 50 ML SYR IV PRN (20:00)
[2016-09-18] MEDS ORDERED: GLUCAGON FOR INJ 1 MG VIAL SQ PRN (20:00)
[2016-09-18 20:17] VITALS: BP 128/77; PULSE 59; TEMP 37; O2SAT 95
[2016-09-18] MEDS: INSULIN ASPART 100 UNITS/ML 3 ML PEN SC SCH (21:00)
[2016-09-18 21:04] LABS: MAGNESIUM 2.3 mg/dl (1.8-2.4)
[2016-09-18] MEDS: ENOXAPARIN 40 MG/0.4 ML SYR SQ SCH (21:21)
[2016-09-18 21:28] VITALS: BP 128/77; PULSE 59; TEMP 37; Ht 177.8 cm; Wt 90.7 kg
[2016-09-18 23:22] LABS: URINE APPEARANCE CLEAR (CLEAR); URINE BILIRUBIN NEG (NEG); URINE COLOR YELLOW; URINE NITRITE NEG (NEG); URINE SPECIFIC GRAVITY > 1.045 (1.000-1.030); UROBILINOGEN NEG (NEG); ZZUR CULT IF INDIC CLEAN CATCH NO
[2016-09-18 23:24] LABS: MANUAL MICROSCOPIC REQUIRED? NO; REVIEW REQ? NO
[2016-09-18 23:44] LABS: BENZODIAZEPINE, URINE NEG (NEG); COCAINE,URINE POS (NEG); PHENCYCLIDINE, URINE NEG (NEG)
[2016-09-18 23:54] VITALS: BP 96/55; PULSE 118; TEMP 37; O2SAT 94
[2016-09-19] VITALS: O2SAT 98
[2016-09-19] MEDS ORDERED: SODIUM CHLORIDE 0.9% 1000ML 1,000 ML IV ONE (01:00)
[2016-09-19 06:18] LABS: BASO % 0.4 %; BASO ABS # 0.03 K/uL (0-0.2); COMPLETE YES; EOS % 6.6 %; IG% 0.1 %; LYMPH % 27.3 %; LYMPH ABS # 2.14 K/uL (1.2-3.4); MEAN CELL VOLUME 87.9 fL (80-100); MEAN CORPUSCULAR HEMOGLOBIN 30.4 pg (25-34); MEAN CORPUSCULAR HGB CONC 34.6 g/dl (32-36); MEAN PLATELET VOLUME 9.4 fL (7.4-10.4); NEUT % 57.6 %; PLATELET COUNT 218 K/uL (130-400); RED BLOOD COUNT 4.21 M/uL (4.7-6.1); WHITE BLOOD COUNT 7.85 K/uL (4.8-10.8)
--- NOTE | 2016-09-19 06:49 | HISTORY & PHYSICAL EXAMINATION ---
DATE OF ADMISSION: 09/18/2016 PRIMARY CARE PHYSICIAN: Dr. Tobar. CHIEF COMPLAINT: Right neck swelling. HISTORY OF PRESENT ILLNESS: History obtained from patient and records. Recent confinement 08/2015 for appendicitis sp appendectomy. Medical history significant for chronic hep C, history of IV drug use, ongoing tobacco abuse, DM2, diet controlled. A few days ago, the patient noted right neck swelling. Denies history of trauma or injection on site, Seen at urgent care center. Prescribed Keflex. No improvement. Patient consulted Emergency Room yesterday. Ultrasound showed localized area of soft tissue edema right supraclavicular region. Bactrim added to Keflex. No improvement. Patient had chills, worsening swelling. At the Emergency Room, the patient received IV Ceftriaxone. MEDICAL HISTORY: As above. Patient follows with [facility] for HCV - followup study every 6 months. SURGERIES: Appendectomy. HOME MEDICATIONS: Include Bactrim, Keflex, oxycodone, Zofran. ALLERGIES: No known drug allergies. FAMILY HISTORY: No known family history as per records. PERSONAL AND SOCIAL HISTORY: One-half pack daily. Denies chronic intake of alcoholic beverages. 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 REVIEW OF SYSTEMS: As per HPI, all other ROS negative. PHYSICAL EXAMINATION: VITAL SIGNS: Blood pressure was noted to be 108/70, pulse rate 95/60, RR 18, 36.6, sats 98 on room air. GENERAL: Noted to be slightly anxious, no respiratory distress. SKIN: Normal color. HEENT: [place] palpebral conjunctivae. Dry mucosa. NECK: No JVD. Tender, swelling in the right supraclavicular area. CHEST: Occasional wheeze. HEART: Regular rate and rhythm. ABDOMEN: Soft. EXTREMITIES: No edema, no tenderness. NEUROLOGIC: No gross focality. LABORATORY DATA: Hemoglobin was noted to be 13, hematocrit 39, white cell count was 9.2, platelets 220. Sodium 140, potassium 4.1, chloride 116, CO2 of 20, BUN 16, creatinine 1.2, glucose was noted to be 120. Hemoglobin A1c from 03/[address] of the neck : moderate right supraclavicular subcutaneous infiltration and fluid overlying adjacent musculature representing cellulitis. No rim-enhancing fluid collection. Small amount of subcutaneous fluid as shown in prior ultrasound, suggesting edema or phlegmon. CT of the chest, multiple subcentimeter solid pulmonary nodules, unchanged from 08/2014, with prominent mediastinal, hilar, axillary lymph nodes. Hypervascular nodule inferior aspect of right lobe of the liver. ASSESSMENT: 1. Cellulitis/phlegmon, right supraclavicular area failed outpatient treatment. No sepsis. 2. Hx HCV, no need for treatment for now as per recent outpatient GI eval 3. DM2, diet controlled. 4. Ongoing tobacco abuse. 5. hx IVDU PLAN: GMF. Cultures, Doxycycline trial Imperative to utilize antibiotic with MRSA coverage given history of IVDU and diabetes. Local measures for cellulitis. Surery consult if no improvement with above intervention. ISS BG goal 140-180, patient due for hemoglobin A1c check Nicotine patch. DVT prophylaxis, Lovenox subQ. Full code. MTDD
[2016-09-19 07:17] VITALS: BP 124/78; PULSE 55; TEMP 36.8; O2SAT 96
[2016-09-19] MEDS: INSULIN ASPART 100 UNITS/ML 3 ML PEN SC SCH ×4 (07:38→19:57)
[2016-09-19] MEDS: NICOTINE 14 MG/24 HR TDSY TD SCH (08:00)
[2016-09-19 08:04] LABS: ESTIMATED AVERAGE GLUCOSE 131 mg/dl; HA1C FLAG Normal (Normal)
[2016-09-19] MEDS: DOXYCYCLINE IV 100 MG in DEXTROSE 5% 100ML 100 ML IV SCH ×2 (08:09→19:56)
[2016-09-19] MEDS: MULTIVITAMIN TAB PO SCH (08:09)
--- NOTE | 2016-09-19 14:16 | Progress Note ---
Internal Med Progress Note Date of Service: Sep 19, 2016. Provider Documentation: SUBJECTIVE: Seen and examined at bedside. Reports R supraclavicular swelling Erythema is improving Pain is controlled Denies any chest pain, SOB. Denies IV drug use at site, trauma, Insect bite OBJECTIVE: Vital Signs-as noted below Physical Exam: General Appearance:Moderately built and nourished, no apparent distress Head: normocephalic, Atraumatic Eyes: normal inspection, EOMI, PERRL Neck: supple, Trachea midline Respiratory/Chest: Normal breath sounds, CTA Cardiovascular: S1, S2, No murmur Abdomen/GI:Soft, Non tender, Bowel sounds present Extremities/Musculoskelatal:normal inspection, no edema. R supraclavicular swelling, erythema Neurologic/Psych:grossly no focal neurological deficits Skin: normal color, warm Lab data as noted below. ASSESSMENT & PLAN: Right Supraclavicular Cellulitis/phlegmon H/O IV drug abuse CT neck: no signs of abscess Failed outpatient treatment (5 doses Keflex and 2 doses Bactrim) No signs of sepsis Wound culture: Staph. 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 PROCEDURES: CT Neck: Moderate right supraclavicular subcutaneous infiltration and fluid overlying the adjacent musculature. The findings represent cellulitis. No rim-enhancing fluid collection. Small amount of subcutaneous fluid as shown on prior ultrasound. This suggests edema or phlegmon. No convincing evidence for abscess. CT Chest: 1. Multiple subcentimeter solid pulmonary nodules, essentially unchanged from August 2014. 2. Mildly prominent mediastinal hilar and axillary lymph nodes, also similar to the prior 2014 study 3. No evidence of focal pulmonary consolidation 4. Partially visualized 18 mm hypervascular nodule within the inferior aspect of the right lobe of the liver. This was not visualized the prior abdominal CT scan dated 09/18/2015. An MRI the liver is recommended in follow-up. Vital Signs: Date Time Temp Pulse Resp B/P (MAP) Pulse Ox O2 Delivery O2 Flow Rate FiO2 09/19/16 09:38 Room Air 09/19/16 07:17 36.8 55 18 124/78 (93) 96 Room Air 09/19/16 00:00 98 Room Air 09/18/16 23:54 37.0 118 18 96/55 (69) 94 Room Air 09/18/16 21:28 37.0 59 18 128/77 Room Air 09/18/16 20:17 37.0 59 18 128/77 (94) 95 Room Air 09/18/16 19:52 36.7 56 18 133/77 98 09/18/16 19:40 56 18 133/77 98 Room Air 09/18/16 17:50 55 118/76 98 Room Air 09/18/16 15:29 36.7 60 20 112/68 99 Room Air Lab Results: Results Past 24 Hours Test 09/18/16 16:25 09/18/16 20:31 09/18/16 23:04 09/19/16 05:49 Range/Units White Blood Count 9.22 7.85 4.8-10.8 K/uL Red Blood Count 4.53 4.21 4.7-6.1 M/uL Hemoglobin 13.8 12.8 14.0-18.0 g/dL Hematocrit 39.3 37.0 42-52 % Mean Corpuscular Volume 86.8 87.9 80-100 fL Mean Corpuscular Hemoglobin 30.5 30.4 25-34 pg Mean Corpuscular Hemoglobin Concent 35.1 34.6 32-36 g/dl Platelet Count 220 218 130-400 K/uL Mean Platelet Volume 8.9 9.4 7.4-10.4 fL Neutrophils (%) (Auto) 65.0 57.6 % Lymphocytes (%) (Auto) 22.1 27.3 % Monocytes (%) (Auto) 6.8 8.0 % Eosinophils (%) (Auto) 5.7 6.6 % Basophils (%) (Auto) 0.2 0.4 % Neutrophils # (Auto) 5.98 4.52 1.4-6.5 K/uL Lymphocytes # (Auto) 2.04 2.14 1.2-3.4 K/uL Monocytes # (Auto) 0.63 0.63 0.11-0.59 K/uL Eosinophils # (Auto) 0.53 0.52 0-0.5 K/uL Basophils # (Auto) 0.02 0.03 0-0.2 K/uL RDW Standard Deviation 42.3 43.3 36.4-46.3 fL RDW Coefficient of Variation 13.2 13.4 11.5-14.5 % Immature Granulocyte % (Auto) 0.2 0.1 % Immature Granulocyte # (Auto) 0.02 0.01 0.00-0.02 K/uL Erythrocyte Sedimentation Rate 2 0-14 mm/hr Prothrombin Time 11.0 9.0-12.0 SECONDS Prothromb Time International Ratio 1.0 0.9-1.1 Activated Partial Thromboplast Time 38.2 21.0-31.0 SECONDS Partial Thromboplastin Ratio 1.5 Sodium Level 140 136-145 mmol/L Potassium Level 4.5 3.5-5.1 mmol/L Chloride Level 111 98-107 mmol/L Carbon Dioxide Level 30 21-32 mmol/L Anion Gap -1.0 3-11 mmol/L Blood Urea Nitrogen 16 7-18 mg/dl Creatinine 1.20 0.60-1.40 mg/dl Est Creatinine Clear Calc Drug Dose 78.8 ml/min Estimated GFR () 78.4 Estimated GFR (Non- 67.7 BUN/Creatinine Ratio 13.2 10-20 Random Glucose 119 70-99 mg/dl Estimated Average Glucose 131 mg/dl Hemoglobin A1c 6.2 4.5-5.6 % Lactic Acid Level 1.4 0.4-2.0 mmol/L Calcium Level 9.1 8.5-10.1 mg/dl Magnesium Level 2.3 1.8-2.4 mg/dl Total Bilirubin 0.4 0.2-1 mg/dl Aspartate Amino Transf (AST/SGOT) 27 15-37 U/L Alanine Aminotransferase (ALT/SGPT) 34 12-78 U/L Alkaline Phosphatase 70 45-117 U/L C-Reactive Protein 7.79 0-0.29 mg/dl Total Protein 6.6 6.4-8.2 gm/dl Albumin 3.3 3.4-5.0 gm/dl Globulin 3.3 2.5-4.0 gm/dl Albumin/Globulin Ratio 1.0 0.9-2 Thyroid Stimulating Hormone (TSH) 1.000 0.300-4.500 uIu/ml Bedside Glucose 78 70-99 mg/dl Urine Color YELLOW Urine Appearance CLEAR CLEAR Urine pH 6.0 4.5-7.5 Urine Specific [place] > 1.045 1.000-1.030 Urine Protein NEG NEG Urine Glucose (UA) NEG NEG Urine Ketones NEG NEG Urine Occult Blood NEG NEG Urine Nitrite NEG NEG Urine Bilirubin NEG NEG Urine Urobilinogen NEG NEG Urine Leukocyte Esterase NEG NEG Urine Opiates Screen POS NEG Urine Methadone, Qualitative NEG NEG Urine Barbiturates NEG NEG Urine Phencyclidine (PCP) Level NEG NEG Ur Amphetamine/Methamphetamine NEG NEG MDMA (Ecstasy) Screen NEG NEG Urine Benzodiazepines Screen NEG NEG Urine Cocaine Metabolite POS NEG Urine Marijuana (THC) NEG NEG Test 09/19/16 07:36 09/19/16 11:24 Range/Units Bedside Glucose 122 115 70-99 mg/dl Microbiology Results 09/18/16 Blood Culture, Received Pending 09/18/16 Blood Culture, Received Pending
[2016-09-19 15:11] VITALS: BP 107/67; PULSE 57; TEMP 37.4; O2SAT 97
[2016-09-19 15:30] VITALS: O2SAT 97
[2016-09-19] MEDS: ENOXAPARIN 40 MG/0.4 ML SYR SQ SCH (21:20)
[2016-09-19 23:05] VITALS: BP 117/68; PULSE 55; TEMP 37.2; O2SAT 98
[2016-09-20] VITALS: O2SAT 97
[2016-09-20] MEDS: INSULIN ASPART 100 UNITS/ML 3 ML PEN SC SCH ×4 (06:30→20:20)
[2016-09-20 07:44] LABS: BUN/CREATININE RATIO 10.2 (10-20); CALCIUM 9.8 mg/dl (8.5-10.1); CREATININE 1.2 mg/dl (0.60-1.40); POTASSIUM 4.3 mmol/L (3.5-5.1)
[2016-09-20 08:00] VITALS: O2SAT 97
[2016-09-20] MEDS: NICOTINE 14 MG/24 HR TDSY TD SCH (08:00)
[2016-09-20] MEDS: DOXYCYCLINE IV 100 MG in DEXTROSE 5% 100ML 100 ML IV SCH ×2 (08:15→20:26)
[2016-09-20] MEDS: MULTIVITAMIN TAB PO SCH (08:15)
[2016-09-20 09:22] VITALS: BP 155/88; PULSE 61; TEMP 36.5; O2SAT 99
--- NOTE | 2016-09-20 12:02 | Progress Note ---
Internal Med Progress Note Date of Service: Sep 20, 2016. Provider Documentation: SUBJECTIVE: Seen and examined at bedside. Reports R supraclavicular swelling and redness Pain is controlled Denies any chest pain, SOB. Denies IV drug use at site, trauma, Insect bite OBJECTIVE: Vital Signs-as noted below Physical Exam: General Appearance:Moderately built and nourished, no apparent distress Head: normocephalic, Atraumatic Eyes: normal inspection, EOMI, PERRL Neck: supple, Trachea midline Respiratory/Chest: Normal breath sounds, CTA Cardiovascular: S1, S2, No murmur Abdomen/GI:Soft, Non tender, Bowel sounds present Extremities/Musculoskelatal:normal inspection, no edema. R supraclavicular swelling, erythema Neurologic/Psych:grossly no focal neurological deficits Skin: normal color, warm Lab data as noted below. ASSESSMENT & PLAN: Right Supraclavicular Cellulitis/phlegmon H/O IV drug abuse CT neck: no signs of abscess Failed outpatient treatment (5 doses Keflex and 2 doses Bactrim) No signs of sepsis Wound culture: Staph. 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 PROCEDURES: CT Neck: Moderate right supraclavicular subcutaneous infiltration and fluid overlying the adjacent musculature. The findings represent cellulitis. No rim-enhancing fluid collection. Small amount of subcutaneous fluid as shown on prior ultrasound. This suggests edema or phlegmon. No convincing evidence for abscess. CT Chest: 1. Multiple subcentimeter solid pulmonary nodules, essentially unchanged from August 2014. 2. Mildly prominent mediastinal hilar and axillary lymph nodes, also similar to the prior 2014 study 3. No evidence of focal pulmonary consolidation 4. Partially visualized 18 mm hypervascular nodule within the inferior aspect of the right lobe of the liver. This was not visualized the prior abdominal CT scan dated 09/18/2015. An MRI the liver is recommended in follow-up. Vital Signs: Date Time Temp Pulse Resp B/P (MAP) Pulse Ox O2 Delivery O2 Flow Rate FiO2 09/20/16 09:22 36.5 61 18 155/88 (110) 99 Room Air 09/20/16 00:00 97 Room Air 09/19/16 23:05 37.2 55 20 117/68 (84) 98 Room Air 09/19/16 15:30 97 Room Air 09/19/16 15:11 37.4 57 20 107/67 (80) 97 Room Air Lab Results: Results Past 24 Hours Test 09/19/16 16:44 09/19/16 19:56 09/20/16 06:34 09/20/16 08:26 Range/Units Bedside Glucose 109 126 141 70-99 mg/dl Sodium Level 140 136-145 mmol/L Potassium Level 4.3 3.5-5.1 mmol/L Chloride Level 107 98-107 mmol/L Carbon Dioxide Level 27 21-32 mmol/L Anion Gap 6.0 3-11 mmol/L Blood Urea Nitrogen 12 7-18 mg/dl Creatinine 1.20 0.60-1.40 mg/dl Est Creatinine Clear Calc Drug Dose 78.8 ml/min Estimated GFR () 78.4 Estimated GFR (Non- 67.7 BUN/Creatinine Ratio 10.2 10-20 Random Glucose 136 70-99 mg/dl Calcium Level 9.8 8.5-10.1 mg/dl Test 09/20/16 11:39 Range/Units Bedside Glucose 158 70-99 mg/dl
[2016-09-20 16:00] VITALS: O2SAT 95
[2016-09-20 16:14] VITALS: BP 133/78; PULSE 60; TEMP 37; O2SAT 97
--- NOTE | 2016-09-20 20:05 | Surgery Consultation ---
Consultation Date of Consultation: Sep 20, 2016. Attending Physician: Douglas Vasques MD Reason for Consultation: soft tissue infection/cellulitis vs abcess History of Present Illness unknown etiology. pt with right supraclavicular cellulitis for several days on IV antibiotics. he states the pain and swelling have improved. Past Medical/Surgical History Medical Problems: (1) Cellulitis Status: Acute (2) Cellulitis, neck Status: Acute Family History Cancer Social History Smoking Status: Current Every Day Smoker Drug Use: none Marital Status: Housing Status: lives with family Occupation Status: employed Allergies Coded Allergies: No Known Allergies (Unverified , 07/11/16) Home Medications Scheduled Cephalexin Monohydrate (Keflex), 500 MG PO QID Multivitamin (Multivitamin), 1 TAB PO DAILY Ondasetron Odt (Zofran Odt), 4 MG SL Q6H Sulfa/Trimethoprim (Bactrim Ds 800MG/160MG), 1 TAB PO BID Scheduled PRN Oxycodone Ir (Roxicodone Ir), 1-2 TAB PO Q4H PRN for Pain Current Inpatient Medications Current Inpatient Medications Medications (Trade) Dose Ordered Sig/Chava Route Start Time Stop Time Status Last Admin Dose Admin Ioversol (Optiray 320) 100 ml UD PRN IV 09/18/16 17:45 09/22/16 17:44 Doxycycline Hyclate 100 mg/ Dextrose 110 ml @ 50 mls/hr BID IV 09/19/16 08:00 09/29/16 08:59 09/20/16 08:15 50 MLS/HR Enoxaparin Sodium (Lovenox Inj) 40 mg DAILY@2100 SQ 09/18/16 21:00 10/18/16 20:59 09/19/16 21:20 40 MG Acetaminophen (Tylenol Tab) 650 mg Q4H PRN PO 09/18/16 19:45 10/18/16 19:44 09/19/16 15:36 650 MG Ketorolac Tromethamine (Toradol Inj) 30 mg Q6H PRN IV 09/18/16 19:45 09/23/16 19:44 Ibuprofen (Advil Tab) 400 mg Q6H PRN PO 09/18/16 19:45 10/18/16 19:44 Ondansetron HCl (Zofran Inj) 4 mg Q6H PRN IV 09/18/16 19:45 10/18/16 19:44 Nicotine (Nicoderm Cq 14MG Patch) 1 patch QAM TD 09/19/16 08:00 10/19/16 08:59 Miscellaneous (Remove Nicoderm Patch) 1 ea HS N/A 09/19/16 21:00 10/19/16 20:59 Multivitamins (Multivitamin Tab) 1 tab DAILY PO 09/19/16 08:00 10/19/16 08:59 09/20/16 08:15 1 TAB Oxycodone HCl (Roxicodone Immediate Rel Tab) 5 mg Q4H PRN PO 09/18/16 19:45 10/02/16 19:44 09/18/16 22:10 5 MG Insulin Aspart (novoLOG ASPART) SLIDING SCALE If C... ACHS SC 09/18/16 21:00 10/18/16 20:59 Glucose (Glucose 40% Gel) 15-30 GRAMS 15 GRAMS... UD PRN PO 09/18/16 20:00 10/18/16 19:59 Glucose (Glucose Chew Tab) 4-8 Tablets 4 Tabl... UD PRN PO 09/18/16 20:00 10/18/16 19:59 Dextrose (Dextrose 50% 50ML Syringe) 25-50ML OF 50% DW IV FOR... UD PRN IV 09/18/16 20:00 10/18/16 19:59 Glucagon (Glucagon Inj) 1 mg UD PRN SQ 09/18/16 20:00 10/18/16 19:59 Albuterol/ Ipratropium (Duoneb) 3 ml Q2H PRN INH 09/18/16 20:00 10/18/16 19:59 Review of Systems Constitutional: + fever Musculoskeletal: + swelling, + problem reported (neck redness/warmth with central opening) Physical Exam Date Time Temp Pulse Resp B/P (MAP) Pulse Ox O2 Delivery O2 Flow Rate FiO2 09/20/16 16:14 37.0 60 18 133/78 (96) 97 Room Air 09/20/16 16:00 95 Room Air 09/20/16 09:22 36.5 61 18 155/88 (110) 99 Room Air 09/20/16 08:00 97 Room Air 09/20/16 08:00 97 Room Air 09/20/16 00:00 97 Room Air 09/19/16 23:05 37.2 55 20 117/68 (84) 98 Room Air General Appearance: no apparent distress Head: + pertinent finding (area of cellulitis about 3 cm or so in supraclavicular area with central opening. no fluid expressed. minimally tender) Eyes: EOMI ENT: hearing grossly normal Neck: + pertinent finding (see above in "head " section. ) Respiratory/Chest: no respiratory distress, no accessory muscle use Abdomen/GI: non tender, soft Laboratory Results Last 24 Hours Test 09/20/16 06:34 09/20/16 08:26 09/20/16 11:39 09/20/16 17:12 Sodium Level 140 mmol/L Potassium Level 4.3 mmol/L Chloride Level 107 mmol/L Carbon Dioxide Level 27 mmol/L Anion Gap 6.0 mmol/L Blood Urea Nitrogen 12 mg/dl Creatinine 1.20 mg/dl Est Creatinine Clear Calc Drug Dose 78.8 ml/min Estimated GFR () 78.4 Estimated GFR (Non- 67.7 BUN/Creatinine Ratio 10.2 Random Glucose 136 mg/dl Calcium Level 9.8 mg/dl Bedside Glucose 141 mg/dl 158 mg/dl 115 mg/dl Assessment & Plan soft tissue cellulitis no obvious abcess. has been 2 days since last imaging which did not show a drainable fluid collection. will repeat US today if drainable fluid will do in OR tomorrow with sedation. if no drainable fluid will rec continue antibiotics until resolved.
--- NOTE | 2016-09-20 20:17 | DIAGNOSTIC IMAGING REPORT ---
RIGHT SUPRACLAVICULAR NECK ULTRASONOGRAPHY CLINICAL HISTORY: Cellulitis. Evaluate for abscess. COMPARISON STUDY: 09/17/2016 FINDINGS: There is edema within the right inferior neck/supraclavicular region. There is a mixed echogenicity predominantly hypoechoic relatively avascular collection measuring 49 x 38 x 7 mm. This is slightly larger than the prior study. There is a surrounding rim of hypervascularity. This likely represents phlegmonous change/subcutaneous inflammatory edema.. This is unlikely to be drainable. Multiple adjacent lymph nodes are present, likely reactive. IMPRESSION: Enlarging hypoechoic lesion measuring 49 x 38 x 7 mm, likely representing phlegmonous change/subcutaneous inflammatory edema. This is unlikely to be drainable. Prominent adjacent lymph nodes are likely reactive. Electronically signed by: Jayden Portillo M.D. 09/20/2016 8:16 PM Dictated Date/Time: 09/20/2016 8:11 PM
[2016-09-20] MEDS: ENOXAPARIN 40 MG/0.4 ML SYR SQ SCH (20:27)
[2016-09-20 23:09] VITALS: BP 137/79; PULSE 52; TEMP 37; O2SAT 98
[2016-09-21 00:03] VITALS: O2SAT 95
[2016-09-21 03:18] LABS: COCAINE, URINE 1080 NG/ML (CUTOFF=100); COD UR NEGATIVE NG/ML (CUTOFF=50); HYDROCOD UR NEGATIVE NG/ML (CUTOFF=50); HYDROMOR UR NEGATIVE NG/ML (CUTOFF=50); MORPHINE UR 2090 NG/ML (CUTOFF=50); NORHYDROCODONE CONF UR NEGATIVE NG/ML (CUTOFF=50); OXYMORPH UR 604 NG/ML (CUTOFF=50)
[2016-09-21] MEDS: MULTIVITAMIN TAB PO SCH (07:35)
[2016-09-21] MEDS: DOXYCYCLINE IV 100 MG in DEXTROSE 5% 100ML 100 ML IV SCH (07:36)
[2016-09-21] MEDS: NICOTINE 14 MG/24 HR TDSY TD SCH (07:36)
[2016-09-21 07:37] LABS: BUN/CREATININE RATIO 13.6 (10-20); CALCIUM 9.6 mg/dl (8.5-10.1); CREATININE 1.1 mg/dl (0.60-1.40)
[2016-09-21 07:39] VITALS: BP 97/65; PULSE 60; TEMP 37.2; O2SAT 96
[2016-09-21] MEDS: INSULIN ASPART 100 UNITS/ML 3 ML PEN SC SCH (07:57)
--- NOTE | 2016-09-21 08:50 | Surgery Progress Note ---
Surgery Progress Note Date of Service Sep 21, 2016. Subjective pt feeling ok. no real pain. small amount of drainage from central core of the area. Objective Vital Signs: Date Time Temp Pulse Resp B/P (MAP) Pulse Ox O2 Delivery O2 Flow Rate FiO2 09/21/16 07:50 Room Air 09/21/16 07:39 37.2 60 16 97/65 (76) 96 Room Air 09/21/16 00:03 95 Room Air 09/20/16 23:09 37.0 52 18 137/79 (98) 98 Room Air 09/20/16 16:14 37.0 60 18 133/78 (96) 97 Room Air 09/20/16 16:00 95 Room Air 09/20/16 09:22 36.5 61 18 155/88 (110) 99 Room Air General Appearance: no apparent distress Neck: + pertinent finding (erythema markedly decreased since admission. small central area with minimal drainage. ) Respiratory/Chest: no respiratory distress, no accessory muscle use Extremities: no pedal edema Laboratory Results: Results Past 24 Hours Test 09/20/16 11:39 09/20/16 17:12 09/20/16 20:01 09/21/16 06:45 Range/Units Bedside Glucose 158 115 132 70-99 mg/dl Sodium Level 140 136-145 mmol/L Potassium Level 4.0 3.5-5.1 mmol/L Chloride Level 108 98-107 mmol/L Carbon Dioxide Level 27 21-32 mmol/L Anion Gap 5.0 3-11 mmol/L Blood Urea Nitrogen 15 7-18 mg/dl Creatinine 1.10 0.60-1.40 mg/dl Est Creatinine Clear Calc Drug Dose 85.9 ml/min Estimated GFR () 87.1 Estimated GFR (Non- 75.2 BUN/Creatinine Ratio 13.6 10-20 Random Glucose 146 70-99 mg/dl Calcium Level 9.6 8.5-10.1 mg/dl Test 09/21/16 07:56 Range/Units Bedside Glucose 135 70-99 mg/dl Assessment & Plan soft tissue cellulitis US showed no drainable fluid improving clincially. nothing to drain now surgically. will sign off. please call if needed.
--- NOTE | 2016-09-21 09:22 | Progress Note ---
Internal Med Progress Note Date of Service: Sep 21, 2016. Provider Documentation: SUBJECTIVE: Seen and examined at bedside. Reports R supraclavicular swelling and redness is improving Denies Pain Also denies any chest pain, SOB. OBJECTIVE: Vital Signs-as noted below Physical Exam: General Appearance:Moderately built and nourished, no apparent distress Head: normocephalic, Atraumatic Eyes: normal inspection, EOMI, PERRL Neck: supple, Trachea midline Respiratory/Chest: Normal breath sounds, CTA Cardiovascular: S1, S2, No murmur Abdomen/GI:Soft, Non tender, Bowel sounds present Extremities/Musculoskelatal:normal inspection, no edema. R supraclavicular swelling, erythema Neurologic/Psych:grossly no focal neurological deficits Skin: normal color, warm Lab data as noted below. ASSESSMENT & PLAN: Right Supraclavicular Cellulitis/phlegmon H/O IV drug abuse CT neck: no signs of abscess Failed outpatient treatment (5 doses Keflex and 2 doses Bactrim) No signs of sepsis Wound culture: Staph. aureus Blood cultures:No growth to date pain control Appreciate Surgery Input. 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 Disposition: Plan to discharge home today Follow up with on 09/25/16 at 10:45AM Complete the antibiotic course as prescribed Get Liver MRI for liver nodule and follow up with your heavy equipment technician as advised PROCEDURES: CT Neck: Moderate right supraclavicular subcutaneous infiltration and fluid overlying the adjacent musculature. The findings represent cellulitis. No rim-enhancing fluid collection. Small amount of subcutaneous fluid as shown on prior ultrasound. This suggests edema or phlegmon. No convincing evidence for abscess. CT Chest: 1. Multiple subcentimeter solid pulmonary nodules, essentially unchanged from August 2014. 2. Mildly prominent mediastinal hilar and axillary lymph nodes, also similar to the prior 2014 study 3. No evidence of focal pulmonary consolidation 4. Partially visualized 18 mm hypervascular nodule within the inferior aspect of the right lobe of the liver. This was not visualized the prior abdominal CT scan dated 09/18/2015. An MRI the liver is recommended in follow-up. R supraclavicular Neck USD; Enlarging hypoechoic lesion measuring 49 x 38 x 7 mm, likely representing phlegmonous change/subcutaneous inflammatory edema. This is unlikely to be drainable. Prominent adjacent lymph nodes are likely reactive. Vital Signs: Date Time Temp Pulse Resp B/P (MAP) Pulse Ox O2 Delivery O2 Flow Rate FiO2 09/21/16 07:50 Room Air 09/21/16 07:39 37.2 60 16 97/65 (76) 96 Room Air 09/21/16 00:03 95 Room Air 09/20/16 23:09 37.0 52 18 137/79 (98) 98 Room Air 09/20/16 16:14 37.0 60 18 133/78 (96) 97 Room Air 09/20/16 16:00 95 Room Air Lab Results: Results Past 24 Hours Test 09/20/16 11:39 09/20/16 17:12 09/20/16 20:01 09/21/16 06:45 Range/Units Bedside Glucose 158 115 132 70-99 mg/dl Sodium Level 140 136-145 mmol/L Potassium Level 4.0 3.5-5.1 mmol/L Chloride Level 108 98-107 mmol/L Carbon Dioxide Level 27 21-32 mmol/L Anion Gap 5.0 3-11 mmol/L Blood Urea Nitrogen 15 7-18 mg/dl Creatinine 1.10 0.60-1.40 mg/dl Est Creatinine Clear Calc Drug Dose 85.9 ml/min Estimated GFR () 87.1 Estimated GFR (Non- 75.2 BUN/Creatinine Ratio 13.6 10-20 Random Glucose 146 70-99 mg/dl Calcium Level 9.6 8.5-10.1 mg/dl Test 09/21/16 07:56 Range/Units Bedside Glucose 135 70-99 mg/dl
--- NOTE | 2016-09-21 09:48 | Discharge Summary ---
Discharge Summary Date of Service Sep 21, 2016. Discharge Summary Admission Date: Sep 18, 2016 at 19:12 Discharge Date: Sep 21, 2016 Discharge Disposition: Home Principal Diagnosis: Right supraclavicular Cellulitis Procedures: CT Neck: Moderate right supraclavicular subcutaneous infiltration and fluid overlying the adjacent musculature. The findings represent cellulitis. No rim-enhancing fluid collection. Small amount of subcutaneous fluid as shown on prior ultrasound. This suggests edema or phlegmon. No convincing evidence for abscess. CT Chest: 1. Multiple subcentimeter solid pulmonary nodules, essentially unchanged from August 2014. 2. Mildly prominent mediastinal hilar and axillary lymph nodes, also similar to the prior 2014 study 3. No evidence of focal pulmonary consolidation 4. Partially visualized 18 mm hypervascular nodule within the inferior aspect of the right lobe of the liver. This was not visualized the prior abdominal CT scan dated 09/18/2015. An MRI the liver is recommended in follow-up. R supraclavicular Neck USD; Enlarging hypoechoic lesion measuring 49 x 38 x 7 mm, likely representing phlegmonous change/subcutaneous inflammatory edema. This is unlikely to be drainable. Prominent adjacent lymph nodes are likely reactive. 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 as advised Medication Reconciliation Continued Medications: Multivitamin (Multivitamin) Tab 1 TAB PO DAILY, TAB Ondasetron Odt (Zofran Odt) 4 Mg Tab 4 MG SL Q6H for Nausea, #10 TAB Oxycodone Ir (Roxicodone Ir) 5 Mg Tab 1-2 TAB PO Q4H PRN for Pain, #15 TAB For Initial Treatment Sulfa/Trimethoprim (Bactrim Ds 800MG/160MG) Tab 1 TAB PO BID for 10 Days, #20 TAB Discontinued Medications: Cephalexin Monohydrate (Keflex) 500 Mg Cap 500 MG PO QID for 10 Days, #40 CAP SCRIPT FILLED 09/16/2016, TAKE DIRECTED UNTIL GONE Admission Information HPI (per Admitting provider): CHIEF COMPLAINT: Right neck swelling. HISTORY OF PRESENT ILLNESS: History obtained from patient and records. Recent confinement 08/2015 for appendicitis sp appendectomy. Medical history significant for chronic hep C, history of IV drug use, ongoing tobacco abuse, DM2, diet controlled. A few days ago, the patient noted right neck swelling. Denies history of trauma or injection on site, Seen at urgent care center. Prescribed Keflex. No improvement. Patient consulted Emergency Room yesterday. Ultrasound showed localized area of soft tissue edema right supraclavicular region. Bactrim added to Keflex. No improvement. Patient had chills, worsening swelling. At the Emergency Room, the patient received IV Ceftriaxone. MEDICAL HISTORY: As above. Patient follows with [facility] [place] [facility] for HCV - followup study every 6 months. Physical Exam (per Admitting): PHYSICAL EXAMINATION: VITAL SIGNS: Blood pressure was noted to be 108/70, pulse rate 95/60, RR 18, 36.6, sats 98 on room air. GENERAL: Noted to be slightly anxious, no respiratory distress. SKIN: Normal color. HEENT: [place] palpebral conjunctivae. Dry mucosa. NECK: No JVD. Tender, swelling in the right supraclavicular area. CHEST: Occasional wheeze. HEART: Regular rate and rhythm. ABDOMEN: Soft. EXTREMITIES: No edema, no tenderness. NEUROLOGIC: No gross focality. Hospital Course Right Supraclavicular Cellulitis/phlegmon H/O IV drug abuse CT neck: no signs of abscess Failed outpatient treatment (5 doses Keflex and 2 doses Bactrim) No signs of sepsis Wound culture: Staph. aureus Blood cultures:No growth to date pain control Appreciate Surgery Input. 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 The findings represent cellulitis. No rim-enhancing fluid collection. Small amount of subcutaneous fluid as shown on prior ultrasound. This suggests edema or phlegmon. No convincing evidence for abscess. CT Chest: 1. Multiple subcentimeter solid pulmonary nodules, essentially unchanged from August 2014. 2. Mildly prominent mediastinal hilar and axillary lymph nodes, also similar to the prior 2014 study 3. No evidence of focal pulmonary consolidation 4. Partially visualized 18 mm hypervascular nodule within the inferior aspect of the right lobe of the liver. This was not visualized the prior abdominal CT scan dated 09/18/2015. An MRI the liver is recommended in follow-up. R supraclavicular Neck USD; Enlarging hypoechoic lesion measuring 49 x 38 x 7 mm, likely representing phlegmonous change/subcutaneous inflammatory edema. This is unlikely to be drainable. Prominent adjacent lymph nodes are likely reactive. Total time spent on discharge = 33 minutes This includes examination of the patient, discharge planning, medication reconciliation, and communication with other providers. Discharge Instructions Discharge Instructions Date of Service Sep 21, 2016. Admission Reason for Admission: Cellulitis,Neck Discharge Discharge Diagnosis / Problem: Right supraclavicular Cellulitis Discharge Goals Goal(s): Decrease discomfort, Improve function Activity Recommendations Activity Limitations: resume your previous activity Exercise/Sports Limitations: as tolerated . 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 Who to Call and When: Medical Emergencies: If at any time you feel your situation is an emergency, please call 911 immediately. . Non-Emergent Contact Non-Emergency issues call your: Primary Care Provider Call Non-Emergent contact if: you have a fever, your pain is unusual for you, wound has increased drainage, wound has increased redness, wound has increased pain, you have any medication questions . . "Provider Documentation" section prepared by Douglas Vasques. . VTE Core Measure Inpt VTE Proph given/why not?: Enoxaparin (Lovenox)SQ
[2016-09-21 09:54] VITALS: BP 97/65; PULSE 60; TEMP 37.2; O2SAT 96
== END 2016-09-21 10:10 | disposition home or self-care (01) | DRG 603 ==
LOC: C.EDB 15:28 → C.4E 19:12 → CANRESERV 19:29 → ENRESERV 19:29
PROVIDERS: ADMIT Internal Medicine; ATTEND Internal Medicine
DX: L03.818 Cellulitis of other sites (principal); F17.200 Nicotine dependence, unspecified, uncomplicated; B18.2 Chronic viral hepatitis C; E11.9 Type 2 diabetes mellitus without complications; F19.10 Other psychoactive substance abuse, uncomplicated; B95.61 Methicillin susceptible Staphylococcus aureus infection as the cause of diseases classified elsewhere

== ENCOUNTER → 2016-10-03 | Outpatient (CLI) | payer OTHER ==
[~2016-10-03] MED LIST changes: -CEPH500C2 PO; -SULF800T23 PO
== END | disposition home or self-care (01) ==
LOC: C.LAB 07:59
PROVIDERS: ATTEND Urology
DX: N40.1 Benign prostatic hyperplasia with lower urinary tract symptoms (principal)

== ENCOUNTER → 2016-12-15 | Outpatient (CLI) | payer OTHER | END | disposition home or self-care (01) | LOC: C.PATH 17:37 | PROVIDERS: ATTEND Urology | DX: R97.20 Elevated prostate specific antigen [PSA] (principal) ==